=== PATIENT | female | born 1980 | race Two or more races ===

== ENCOUNTER → 2022-03-03 | Outpatient (CLI) | payer MEDICAID ==
[2022-03-03 12:49] LABS: Follicle Stimulating Hormone 1.99 IU/L (SEE BELOW); Leuteinizing Hormone 1.3 IU/L
== END | disposition home or self-care (01) ==
LOC: LAB 11:20
PROVIDERS: ATTEND Obstetrics & Gynecology Obstetrics
DX: N92.0 Excessive and frequent menstruation with regular cycle (principal)
CPT/HCPCS: 36415; 82670; 83001; 83002; 84144; 84403; 84443

== ENCOUNTER 2022-07-28 06:33 | Day surgery (SDC) | payer MEDICAID ==
[2022-07-25 10:56] LABS: Basophils # (auto) 0.1 10 ^3/uL (0-0.2); Basophils % (auto) 0.7 % (0.0-2.0); Eosinophils # (auto) 0.1 10 ^3/uL (0-0.8); Hematocrit 39.9 % (36.0-46.0); Hemoglobin 13.2 g/dL (12.2-16.2); Lymphocytes # (auto) 3.1 10 ^3/uL (0.4-5.4); Lymphocytes % (auto) 33.5 % (10.0-50.0); Mean Corpuscular Hemoglobin 27.5 pg (28.0-32.0); Mean Corpuscular Volume 83.4 fL (80.0-100.0); Monocytes # (auto) 0.4 10 ^3/uL (0-1.3); Monocytes % (auto) 4.1 % (0.0-12.0); Neutrophils # (auto) 5.7 10 ^3/uL (1.6-8.6); Neutrophils % (auto) 60.7 % (37.0-80.0); Nucleated Red Blood Cells % 0.1 %; Red Blood Cells 4.78 10^6/uL (4.0-5.20); Red Cell Distribution Width 14.1 % (11.8-14.3); White Blood Cell 9.3 10^3/uL (4.4-10.8)
[2022-07-25 11:18] LABS: Urine Bacteria FEW /hpf (None Seen); Urine Blood TRACE /uL (Negative); Urine Mucus FEW (None Seen); Urine Specific Gravity 1.021 (1.001-1.035); Urine WBC 1 /hpf (0 - 5)
[2022-07-25 11:23] LABS: INR 0.94 (0.9-1.15); Partial Thromboplastin Time 26.8 sec (24.6-33.4)
[2022-07-25 11:38] LABS: Calcium 8.9 mg/dL (8.5-10.1); Potassium 3.6 mmol/L (3.5-5.1)
[2022-07-25 11:44] LABS: Albumin 3.3 g/dL (3.4-5.0); BUN/Creatinine Ratio 16.9 (10.0-20.0); Bilirubin, Total 0.3 mg/dL (0.2-1.0); Total Protein 7.4 g/dL (6.4-8.2)
[~2022-07-28] VITALS: Ht 157.5 cm; Wt 135.2 kg
[2022-07-28] MEDS ORDERED: METOCLOPRAMIDE HCL 5MG/ml INJ 2ml VIAL IV ONE (06:34)
[2022-07-28] MEDS ORDERED: fentaNYL CITRATE 100 MCG/2 ML VL ONE (07:38)
[2022-07-28] MEDS ORDERED: MEPERIDINE HCL (25 MG/ML) 1ML VIAL ONE (07:38)
[2022-07-28] MEDS ORDERED: MIDAZOLAM HCL 2MG/2ML 2ml VIAL (1mg/ml) ONE (07:38)
[2022-07-28] MEDS ORDERED: ceFAZolin 1GM/50ML 100 ML IV ONE (07:41)
[2022-07-28] MEDS ORDERED: ONDANSETRON HCL 4 MG/2 ML VIAL IV PRN ×3 (08:30→09:00)
[2022-07-28] MEDS ORDERED: LACTATED RINGER'S 1,000 ML IV SCH ×2 (08:30→09:00)
[2022-07-28] MEDS ORDERED: ePHEDrine SULFATE 50 MG/ML AMP IV PRN (08:45)
[2022-07-28] MEDS ORDERED: MIDAZOLAM HCL 2MG/2ML 2ml VIAL (1mg/ml) IV PRN (08:45)
[2022-07-28] MEDS ORDERED: MORPHINE SULFATE 4 MG/ML SYR/VIAL IV PRN (08:45)
[2022-07-28] MEDS ORDERED: LABETALOL HCL 5 MG/ML 4ML SYRINGE IV PRN (08:45)
[2022-07-28] MEDS ORDERED: HYDR-4902 PO (08:50)
[2022-07-28] MEDS ORDERED: ONDA-144 PO (08:50)
[2022-07-28] MEDS ORDERED: IBUP800T27 PO (08:50)
[2022-07-28] MEDS ORDERED: DexAMETHasone SOD PHOS 10MG/1ML VIAL INJ ONE (08:54)
[2022-07-28] MEDS ORDERED: PROPOFOL 10 MG/ML 20 ML IV ONE (08:54)
[2022-07-28 09:20] VITALS: BP 112/67
== END 2022-07-28 09:30 | disposition home or self-care (01) ==
LOC: SUR 06:33
PROVIDERS: ATTEND Obstetrics & Gynecology
DX: N93.9 Abnormal uterine and vaginal bleeding, unspecified (principal); N88.2 Stricture and stenosis of cervix uteri; E66.01 Morbid (severe) obesity due to excess calories; D64.9 Anemia, unspecified; Z98.51 Tubal ligation status; Z98.891 History of uterine scar from previous surgery; Z20.822 Contact with and (suspected) exposure to COVID-19
CPT/HCPCS: 36415; 58563; 80053; 81001; 81025; 84702; 85025; 85610; 85730; 86850; 86900; 86901; J0690; J1100; J2175; J2250; J2270; J2704; J2765; J3010; U0003

== ENCOUNTER 2023-04-06 05:59 | Inpatient (IN) | payer MEDICAID ==
[2023-04-04 10:08] LABS: Urine Bacteria FEW /hpf (None Seen); Urine Blood Negative /uL (Negative); Urine Clarity Clear (Clear); Urine Protein, UAD Negative (Negative); Urine Specific Gravity 1.003 (1.001-1.035); Urine Urobilinogen Normal (Negative); Urine WBC <1 /hpf (0 - 5); Urine pH 6.5 (5.0-8.0)
[2023-04-04 10:09] LABS: Urine Color Straw (Yellow)
[2023-04-04 10:29] LABS: Basophils # (auto) 0.1 10 ^3/uL (0-0.2); Basophils % (auto) 0.8 % (0.0-2.0); Eosinophils # (auto) 0.1 10 ^3/uL (0-0.8); Eosinophils % (auto) 1.3 % (0.0-7.0); Hematocrit 40.4 % (36.0-46.0); Hemoglobin 13.4 g/dL (12.2-16.2); Lymphocytes # (auto) 3.2 10 ^3/uL (0.4-5.4); Lymphocytes % (auto) 37.9 % (10.0-50.0); Mean Corpuscular Hemoglobin 27.8 pg (28.0-32.0); Mean Corpuscular Hgb Conc. 33.3 g/dL (32.0-36.0); Mean Corpuscular Volume 83.4 fL (80.0-100.0); Monocytes # (auto) 0.5 10 ^3/uL (0-1.3); Monocytes % (auto) 5.6 % (0.0-12.0); Neutrophils # (auto) 4.6 10 ^3/uL (1.6-8.6); Neutrophils % (auto) 54.4 % (37.0-80.0); Red Blood Cells 4.84 10^6/uL (4.0-5.20); Red Cell Distribution Width 14.6 % (11.8-14.3); White Blood Cell 8.4 10^3/uL (4.4-10.8)
[2023-04-04 10:52] LABS: INR 0.97 (0.9-1.15); Partial Thromboplastin Time 28.2 SEC (24.5-34.5); Prothrombin Time 10.2 sec (9.3-11.8)
[2023-04-04 10:53] LABS: Alanine Aminotransferase 25 U/L (7-40); Alkaline Phosphatase 69 U/L (46-116); Anion Gap 7 (5-15); BUN/Creatinine Ratio 9.6 (10.0-20.0); Blood Urea Nitrogen 7 mg/dL (9-23); Calcium 9.8 mg/dL (8.5-10.1); Carbon Dioxide 28 mmol/L (20-30); Chloride 104 mmol/L (98-107); Glucose 104 mg/dL (74-106); Potassium 4.5 mmol/L (3.5-5.1); Sodium 139 mmol/L (136-145)
[2023-04-04 10:54] LABS: Albumin 4.6 g/dL (3.2-4.8); Aspartate Aminotransferase 20 U/L (13-40); Bilirubin, Total 0.3 mg/dL (0.2-1.0)
[2023-04-04 10:55] LABS: Total Protein 7.4 g/dL (5.7-8.2)
[~2023-04-06] VITALS: Ht 157.5 cm; Wt 99.3 kg
[2023-04-06] MEDS ORDERED: GABAPENTIN 300 MG CAP ONE (06:26)
[2023-04-06] MEDS ORDERED: CELECOXIB 100 MG CAP ONE (06:26)
[2023-04-06] MEDS ORDERED: ceFAZolin 2 GM/D5W100ml 100 ML IV ONE (06:26)
[2023-04-06] MEDS ORDERED: ACETAMINOPHEN IV 100 ML IV ONE (06:27)
[2023-04-06] MEDS: BUPIVACAINE HCL 0.25% P/F 10 ML VIAL ONE ×2 (07:07→08:00)
[2023-04-06] MEDS ORDERED: METHYLENE BLUE 0.5% 5MG/ML 10ml AMP IV ONE (07:08)
[2023-04-06] MEDS ORDERED: SUCCINYLCHOLINE CHLORIDE 20 MG/ML 10ML VIAL IV ONE (07:08)
[2023-04-06] MEDS: LIDOCAINE W/ EPINEPHRINE 2% INJ 20ML VIAL ONE ×2 (07:08→08:00)
[2023-04-06] MEDS ORDERED: ROCURONIUM 10MG/ML 10ML VIAL IV ONE (07:08)
[2023-04-06] MEDS ORDERED: LIDOCAINE 2% JELLY 11ml (GLYDO) ONE (07:08)
[2023-04-06] MEDS ORDERED: VASOPRESSIN 20 UNIT/ML ONE (07:08)
[2023-04-06] MEDS ORDERED: MEPERIDINE HCL (25 MG/ML) 1ML VIAL ONE (07:17)
[2023-04-06] MEDS ORDERED: fentaNYL CITRATE 100 MCG/2 ML VL ONE ×2 (07:17→09:59)
[2023-04-06] MEDS ORDERED: MIDAZOLAM HCL 2MG/2ML 2ml VIAL (1mg/ml) ONE (07:17)
[2023-04-06] MEDS ORDERED: PROPOFOL 10 MG/ML 20 ML IV ONE (07:18)
[2023-04-06] MEDS ORDERED: GLYCOPYRROLATE 0.2 MG/ML 1ML VIAL ONE (07:18)
[2023-04-06] MEDS ORDERED: SODIUM CHLORIDE LOCK 10 ML ONE (07:18)
[2023-04-06] MEDS ORDERED: DexAMETHasone SOD PHOS 10MG/1ML VIAL INJ ONE (07:18)
[2023-04-06] MEDS ORDERED: ONDANSETRON HCL 4 MG/2 ML VIAL ONE (07:18)
[2023-04-06] MEDS ORDERED: NEOSTIGMINE 1 MG/ML INJ (10mg/10ML VIAL) ONE (07:18)
[2023-04-06] MEDS ORDERED: HYDROmorphone HCL 2 MG/ML VL/or syr IV PRN ×2 (07:30)
[2023-04-06] MEDS ORDERED: METOCLOPRAMIDE HCL 5MG/ml INJ 2ml VIAL IV PRN (07:30)
[2023-04-06] MEDS ORDERED: MORPHINE SULFATE INJ 2 MG/ml SYRG IV PRN ×2 (07:30→07:45)
[2023-04-06] MEDS ORDERED: KETOROLAC TROMETH 30 MG/ML 1ML VIAL IV PRN (07:45)
[2023-04-06] MEDS ORDERED: ONDANSETRON HCL 4 MG/2 ML VIAL IV PRN (07:45)
[2023-04-06] MEDS: LACTATED RINGER'S 1,000 ML IV SCH ×2 (07:45→16:05)
[2023-04-06] MEDS ORDERED: NITROGLYCERIN 0.4 MG SL TAB SL PRN (07:45)
[2023-04-06] MEDS ORDERED: MORPHINE SULFATE 4 MG/ML SYR/VIAL IV PRN (07:45)
[2023-04-06] MEDS ORDERED: ACETAMINOPHEN IV 1000 MG/100ML (10MG/ML) IV ONE (08:00)
[2023-04-06] MEDS ORDERED: GABAPENTIN 300 MG CAP PO ONE (08:00)
[2023-04-06] MEDS ORDERED: CELECOXIB 100 MG CAP PO ONE (08:00)
[2023-04-06] MEDS ORDERED: KETOROLAC TROMETH 60MG/2ML VIAL ONE (09:32)
[2023-04-06] MEDS ORDERED: FUROSEMIDE 20 MG/2 ML VIAL ONE (11:20)
[2023-04-06 12:03] VITALS: O2SAT 95
[2023-04-06] MEDS ORDERED: IOHEXOL 300 MG/ML 100ML BOTTLE IJ ONE ×2 (12:20→12:57)
[2023-04-06] MEDS: D5W/SOD CHL 0.45%/KCL 20MEQ 1,000 ML IV SCH ×2 (14:30→22:52)
[2023-04-06] MEDS: HYDROcodone-ACET 10/325MG TAB PO PRN (16:20)
[2023-04-06 16:38] VITALS: BP 110/64; PULSE 85; RESP 17; TEMP 98.4; O2SAT 99
[2023-04-06 17:41] VITALS: BP 110/64; PULSE 83; PULSE 85; RESP 17; TEMP 98.4; O2SAT 94; O2SAT 99
[2023-04-06] MEDS ORDERED: IBUP-1455 PO (20:06)
[2023-04-06] MEDS ORDERED: HYDR-4798 PO (20:06)
[2023-04-06] MEDS ORDERED: CEPH500T PO (20:06)
[2023-04-06 21:36] LABS: Basophils # (auto) 0 10 ^3/uL (0-0.2); Basophils % (auto) 0.3 % (0.0-2.0); Eosinophils # (auto) 0 10 ^3/uL (0-0.8); Hematocrit 34.8 % (36.0-46.0); Hemoglobin 11.5 g/dL (12.2-16.2); Lymphocytes # (auto) 0.9 10 ^3/uL (0.4-5.4); Lymphocytes % (auto) 9.7 % (10.0-50.0); Mean Corpuscular Hemoglobin 27.6 pg (28.0-32.0); Mean Corpuscular Hgb Conc. 33.2 g/dL (32.0-36.0); Mean Corpuscular Volume 83.2 fL (80.0-100.0); Monocytes # (auto) 0.6 10 ^3/uL (0-1.3); Monocytes % (auto) 6.5 % (0.0-12.0); Neutrophils # (auto) 8.1 10 ^3/uL (1.6-8.6); Neutrophils % (auto) 83.5 % (37.0-80.0); Red Blood Cells 4.18 10^6/uL (4.0-5.20); Red Cell Distribution Width 14.8 % (11.8-14.3); White Blood Cell 9.7 10^3/uL (4.4-10.8)
[2023-04-06 22:00] VITALS: BP 103/58; PULSE 96; RESP 16; TEMP 99; O2SAT 93
[2023-04-06] MEDS: MILK OF MAGNESIA 30ML SUSP PO SCH (22:51)
[2023-04-06] MEDS: IBUPROFEN 800 MG TAB PO SCH (22:52)
[2023-04-07 05:00] VITALS: BP 103/60; PULSE 102; RESP 17; TEMP 98.9; O2SAT 94
[2023-04-07] MEDS: IBUPROFEN 800 MG TAB PO SCH ×2 (06:19→14:40)
[2023-04-07 07:11] LABS: Basophils # (auto) 0 10 ^3/uL (0-0.2); Basophils % (auto) 0.3 % (0.0-2.0); Eosinophils # (auto) 0.1 10 ^3/uL (0-0.8); Eosinophils % (auto) 1.3 % (0.0-7.0); Hematocrit 32.5 % (36.0-46.0); Hemoglobin 10.9 g/dL (12.2-16.2); Lymphocytes # (auto) 1.5 10 ^3/uL (0.4-5.4); Lymphocytes % (auto) 18.2 % (10.0-50.0); Mean Corpuscular Hemoglobin 28.2 pg (28.0-32.0); Mean Corpuscular Hgb Conc. 33.7 g/dL (32.0-36.0); Mean Corpuscular Volume 83.7 fL (80.0-100.0); Monocytes # (auto) 0.6 10 ^3/uL (0-1.3); Monocytes % (auto) 7.3 % (0.0-12.0); Neutrophils # (auto) 5.9 10 ^3/uL (1.6-8.6); Neutrophils % (auto) 72.9 % (37.0-80.0); Red Blood Cells 3.88 10^6/uL (4.0-5.20); Red Cell Distribution Width 14.4 % (11.8-14.3)
[2023-04-07 07:38] LABS: Alanine Aminotransferase 19 U/L (7-40); Albumin 3.6 g/dL (3.2-4.8); Alkaline Phosphatase 48 U/L (46-116); Anion Gap 8 (5-15); Aspartate Aminotransferase 38 U/L (13-40); BUN/Creatinine Ratio 8.3 (10.0-20.0); Blood Urea Nitrogen 5 mg/dL (9-23); Calcium 8.3 mg/dL (8.5-10.1); Carbon Dioxide 25 mmol/L (20-30); Chloride 105 mmol/L (98-107); Glucose 138 mg/dL (74-106); Potassium 3.6 mmol/L (3.5-5.1); Sodium 138 mmol/L (136-145); Total Protein 5.8 g/dL (5.7-8.2)
[2023-04-07 07:39] LABS: Bilirubin, Total 0.6 mg/dL (0.2-1.0)
[2023-04-07 09:00] VITALS: BP 90/62; PULSE 92; RESP 16; TEMP 98.3; O2SAT 92
[2023-04-07] MEDS: HYDROcodone-ACET 10/325MG TAB PO PRN ×2 (09:28→18:40)
[2023-04-07] MEDS: MILK OF MAGNESIA 30ML SUSP PO SCH (10:10)
[2023-04-07 13:00] VITALS: BP 100/56; PULSE 91; RESP 16; TEMP 98.1; O2SAT 94
[2023-04-07 17:29] VITALS: BP 112/71; PULSE 100; RESP 18; TEMP 98.4; O2SAT 100
[2023-04-07] MEDS ORDERED: IBUPROFEN 800 MG TAB PO PRN (18:30)
[2023-04-07 22:00] VITALS: BP 101/59; PULSE 108; RESP 19; TEMP 98.3; O2SAT 94
[2023-04-08 05:00] VITALS: BP 105/69; PULSE 94; RESP 16; TEMP 98.4; O2SAT 95
[2023-04-08] MEDS ORDERED: BISACODYL 10 MG RECT SUPP PR PRN (06:15)
[2023-04-08 07:06] LABS: Basophils # (auto) 0 10 ^3/uL (0-0.2); Basophils % (auto) 0.4 % (0.0-2.0); Eosinophils # (auto) 0.3 10 ^3/uL (0-0.8); Eosinophils % (auto) 3.4 % (0.0-7.0); Hematocrit 33.9 % (36.0-46.0); Lymphocytes # (auto) 1.7 10 ^3/uL (0.4-5.4); Lymphocytes % (auto) 21.8 % (10.0-50.0); Mean Corpuscular Hemoglobin 27.3 pg (28.0-32.0); Mean Corpuscular Hgb Conc. 32.4 g/dL (32.0-36.0); Mean Corpuscular Volume 84.1 fL (80.0-100.0); Monocytes # (auto) 0.6 10 ^3/uL (0-1.3); Monocytes % (auto) 7.5 % (0.0-12.0); Neutrophils # (auto) 5.2 10 ^3/uL (1.6-8.6); Neutrophils % (auto) 66.9 % (37.0-80.0); Red Blood Cells 4.03 10^6/uL (4.0-5.20); Red Cell Distribution Width 14.7 % (11.8-14.3); White Blood Cell 7.8 10^3/uL (4.4-10.8)
[2023-04-08 09:00] VITALS: BP 103/64; PULSE 93; RESP 18; TEMP 98.4; O2SAT 95
[2023-04-08] MEDS: MILK OF MAGNESIA 30ML SUSP PO SCH (10:27)
[2023-04-08] MEDS: HYDROcodone-ACET 10/325MG TAB PO PRN (11:40)
[2023-04-08 15:04] VITALS: TEMP 36.9
== END 2023-04-08 16:01 | disposition home or self-care (01) | DRG 513 ==
LOC: SUR 05:59 → OVERFLOW 07:45 → WEST WING 15:18
PROVIDERS: ADMIT Obstetrics & Gynecology; ATTEND Obstetrics & Gynecology
PROC: 0UT90ZZ Resection of Uterus, Open Approach (ICD-10-PCS; 2023-04-06)
PROC: 0UT70ZZ Resection of Bilateral Fallopian Tubes, Open Approach (ICD-10-PCS; 2023-04-06)
PROC: 0TJB8ZZ Inspection of Bladder, Via Natural or Artificial Opening Endoscopic (ICD-10-PCS; 2023-04-06)
PROC: 0DNU0ZZ Release Omentum, Open Approach (ICD-10-PCS; 2023-04-06)
PROC: 0DNW0ZZ Release Peritoneum, Open Approach (ICD-10-PCS; 2023-04-06)
PROC: 0UJD4ZZ Inspection of Uterus and Cervix, Percutaneous Endoscopic Approach (ICD-10-PCS; principal; 2023-04-06 07:31)
DX: N92.0 Excessive and frequent menstruation with regular cycle (principal); Z68.41 Body mass index [BMI] 40.0-44.9, adult; E66.01 Morbid (severe) obesity due to excess calories; N73.6 Female pelvic peritoneal adhesions (postinfective); G89.29 Other chronic pain; Z98.891 History of uterine scar from previous surgery; Z98.51 Tubal ligation status; Z82.49 Family history of ischemic heart disease and other diseases of the circulatory system; G56.00 Carpal tunnel syndrome, unspecified upper limb; R73.03 Prediabetes
CPT/HCPCS: 36415; 71275; 74178; 80053; 81001; 81025; 84702; 85025; 85610; 85730; 86850; 86900; 86901; 97116; 97163; 97530; G0378; J0131; J0330; J1100; J1885; J2250; J2405; J2704; J3490; J7060

== ENCOUNTER → 2024-07-02 | Outpatient (CLI) | payer OTHER, MEDICAID ==
[~2024-07-02] MED LIST: CEPH500C PO; HYDR-4902 PO; IBUP-1455 PO
[2024-07-02 08:27] LABS: Basophils # (auto) 0.1 10 ^3/uL (0-0.2); Basophils % (auto) 1.2 % (0.0-2.0); Eosinophils # (auto) 0.2 10 ^3/uL (0-0.8); Eosinophils % (auto) 4.5 % (0.0-7.0); Hematocrit 37.9 % (36.0-46.0); Hemoglobin 12.9 g/dL (12.2-16.2); Lymphocytes # (auto) 2.4 10 ^3/uL (0.4-5.4); Lymphocytes % (auto) 45.9 % (10.0-50.0); Mean Corpuscular Hemoglobin 29.5 pg (28.0-32.0); Mean Corpuscular Volume 86.7 fL (80.0-100.0); Monocytes # (auto) 0.3 10 ^3/uL (0-1.3); Neutrophils # (auto) 2.3 10 ^3/uL (1.6-8.6); Neutrophils % (auto) 43.4 % (37.0-80.0); Nucleated Red Blood Cells % 0.1 %; Platelet Count (auto) 253 10^3/uL (140-450); Red Blood Cells 4.38 10^6/uL (4.0-5.20); Red Cell Distribution Width 13.6 % (11.8-14.3); White Blood Cell 5.3 10^3/uL (4.4-10.8)
[2024-07-02 08:29] LABS: Urine Bacteria MANY /hpf (None Seen); Urine Blood Negative /uL (Negative); Urine Clarity Turbid (Clear); Urine Color Light-Yellow (Yellow); Urine Hyaline Cast FEW /lpf (0 - 2); Urine Mucus FEW (None Seen); Urine Protein, UAD Negative (Negative); Urine Specific Gravity 1.025 (1.001-1.035); Urine Squamous Epithelial Cell FEW /hpf (<5); Urine Urobilinogen Normal (Negative); Urine WBC 2 /HPF (0-5)
[2024-07-02 08:50] LABS: Alanine Aminotransferase 20 U/L (7-40); Albumin 4.8 g/dL (3.2-4.8); Alkaline Phosphatase 60 U/L (46-116); Anion Gap 7 (5-15); BUN/Creatinine Ratio 21.1 (10.0-20.0); Blood Urea Nitrogen 16 mg/dL (9-23); Calcium 9.7 mg/dL (8.7-10.4); Carbon Dioxide 29 mmol/L (20-31); Chloride 106 mmol/L (98-107); Glucose 101 mg/dL (74-106); Magnesium 2.1 mg/dL (1.6-2.6); Potassium 3.8 mmol/L (3.5-5.1); Sodium 142 mmol/L (136-145); Total Protein 7.3 g/dL (5.7-8.2); Triglycerides 66 mg/dL (< 150)
[2024-07-02 08:51] LABS: Bilirubin, Total 0.6 mg/dL (0.2-1.0)
[2024-07-02 08:55] LABS: Aspartate Aminotransferase 13 U/L (13-40); Cholesterol 202 mg/dL (< 200); HDL Cholesterol 69 mg/dL (40-59); LDL Cholesterol 124 mg/dL (< 100)
[2024-07-02 09:11] LABS: Free T4 (Free Thyroxine) 1.26 ng/dL (0.89-1.76)
[2024-07-03 10:24] LABS: Hepatitis B Core Total AB Negative (Negative)
[2024-07-03 10:48] LABS: Hepatitis A Total Antibody Positive (Negative); Hepatitis B Surface Antibody Negative (Negative); Hepatitis B Surface Antigen Negative (Negative); Hepatitis C Antibody Negative (Negative)
== END | disposition home or self-care (01) ==
LOC: LAB 07:55
PROVIDERS: ATTEND Nurse Practitioner Family
DX: Z11.3 Encounter for screening for infections with a predominantly sexual mode of transmission (principal); R42 Dizziness and giddiness; F41.9 Anxiety disorder, unspecified; Z00.01 Encounter for general adult medical examination with abnormal findings; Z98.84 Bariatric surgery status
CPT/HCPCS: 36415; 80053; 80061; 81001; 82306; 82607; 83036; 83735; 84439; 84443; 85025; 86703; 86704; 86706; 86708; 86780; 86803; 87340